=== PATIENT | male | born 1965 | race Caucasian/White ===

== ENCOUNTER 2019-07-04 08:07 | Outpatient (RCR) | payer OTHER, SELFPAY | END 2019-07-05 | LOC: GILAB 08:07 | PROVIDERS: Family Provider Internal Medicine; Visit Provider Internal Medicine | DX: R18.8 Other ascites (principal) | CPT/HCPCS: 36415 ×5; 49082 ×4; 76705 ×4; 80048 ×4; 85025 ×4; 96365 ×4; P9047 ×4 ==

== ENCOUNTER 2019-10-10 08:27 | Outpatient (RCR) | payer OTHER, SELFPAY | END 2019-11-04 00:01 | LOC: GILAB 08:27 | PROVIDERS: Family Provider Internal Medicine; Visit Provider Internal Medicine | DX: R18.8 Other ascites (principal) | CPT/HCPCS: 36415; 49082; 76705; 80048; 85025; P9047 ==

== ENCOUNTER → 2019-11-24 11:34 | Outpatient (BNVA) | payer BC, SELFPAY | PROVIDERS: Family Provider Internal Medicine; PCP Internal Medicine; Visit Provider Family Medicine | DX: Z94.4 Liver transplant status (principal) | CPT/HCPCS: 80048; 80076; 83735; 84100; 85025 ==

== ENCOUNTER 2019-11-26 14:37 | Outpatient (CLI) | payer BC, SELFPAY ==
--- NOTE | 2019-11-26 14:48 | US_ITS ---
WS: [id number] Abdominal ultrasound, limited. History: Evaluate for ascites. Comparison: None. All 4 quadrants are imaged by ultrasound to evaluate for ascites. Moderate amount of ascites througho ut all 4 quadrants. Paracentesis marked for Dr. Sotomayor. US/US abdomen limited [id number] IMPRESSION: Moderate amount of ascites.
[2019-11-26 15:08] VITALS: BMI 32.8
--- NOTE | 2019-11-26 15:29 | PC.NURSE ---
verbal order received from Dr. Sotomayor for a patient for albumin. Was having difficulty with the medication into the MAR. Pharmacy contacted and order given. Pharmacist informed that the medication would be put into the system for the patient.
[2019-11-26 17:08] VITALS: BP 135/85
[2019-11-26 17:44] LABS: Apprearance, Body Fluid CLEAR (CLEAR)
[2019-11-26 17:46] LABS: Body Fluid Polynuclear #Cells 0.018 10^3/uL; Body Fluid WBC 305 u/L; Monocytes # Body Fluid 0.287 10^3/uL; RBC, Body Fluid 2 10^3/uL (0-0)
[2019-11-26 18:03] LABS: Color, Body Fluid PALE YELLOW (PALE YELLOW)
[2019-11-26 21:03] LABS: Body Fluid Specific Gravity 1.005
[2019-11-26 21:04] LABS: Albumin Body Fluid 2.5 g/dL; Amylase Body Fluid 11 U/L; Cholesterol Body Fluid 88 mg/dL (0-200); Fluid Alkaline Phos. 29 IU/L; LDH Body Fluid 113 U/L; Total Protein Body Fluid 4 g/dL; Triglycerides Body Fluid 51 mg/dL (0-150)
[2019-11-26 21:05] LABS: Uric Acid Body Fluid 12 mg/dL
--- NOTE | 2019-11-27 11:26 | PM.ACPR ---
Acute Procedures Paracentesis: Time out performed: Yes Indication: Ascites Procedure: diagnostic paracentesis Location: RLQ Local anesthetic used: lidocaine 1% Amount of anesthesia used (ml): 5 Preparation: sterile prep and drape and 11 blade used to make trey in skin Amount of fluid obtained (ml): 5,600 Fluid: clear Size of needle used: 16 Post procedure exam: awake, alert, normal BP, normal HR and normal SpO2 Patient tolerated procedure: well Complications: none
== END 2019-11-26 14:38 | disposition home or self-care (01) ==
LOC: GILAB 14:40
PROVIDERS: Family Provider Internal Medicine; PCP Internal Medicine; Visit Provider Internal Medicine
DX: R18.8 Other ascites (principal)
CPT/HCPCS: 12345; 49082; 76705; 80500; 82042; 82150; 82465; 82945; 83615; 83986; 84075; 84157; 84315; 84478; 84560; 87070; 87075; 87205; 88112; 88305; 89050; 96365; P9047

== ENCOUNTER → 2019-12-01 08:03 | Outpatient (BNVA) | payer BC, SELFPAY | PROVIDERS: Family Provider Internal Medicine; PCP Internal Medicine; Visit Provider Internal Medicine | DX: Z94.4 Liver transplant status (principal) | CPT/HCPCS: 80048; 80076; 83735; 84100; 85025 ==

== ENCOUNTER 2019-12-05 11:07 | Outpatient (CLI) | payer BC, SELFPAY ==
[2019-12-05 11:01] VITALS: BP 132/97; PULSE 68; RESP 18; TEMP 36.4; O2SAT 98
[2019-12-05 11:02] VITALS: BP 163/97; PULSE 69; RESP 18; TEMP 36.4; O2SAT 98
--- NOTE | 2019-12-05 11:08 | US_ITS ---
WS: [id number] ULTRASOUND ABDOMEN LIMITED CLINICAL INFORMATION: ASCITES COMPARISON: None. FINDINGS: Ultrasound for paracentesis marking. Moderate ascites. IMPRESSION: Paracentesis marking
[2019-12-05 11:43] VITALS: BMI 32.6
--- NOTE | 2019-12-05 13:33 | PM.ACPR ---
Acute Procedures Paracentesis: Time out performed: Yes Indication: Ascites Procedure: therapeutic paracentesis Amount of anesthesia used (ml): 10 Bedside ultrasound used: yes, Ascites confirmed and location marked Preparation: sterile prep and drape and 11 blade used to make trey in skin Amount of fluid obtained (ml): 6,000 Fluid: clear Size of needle used: 16 Post procedure exam: awake, alert, normal BP, normal HR and normal SpO2 Patient tolerated procedure: well Complications: none
== END 2019-12-05 11:08 | disposition home or self-care (01) ==
PROVIDERS: Family Provider Internal Medicine; PCP Internal Medicine; Visit Provider Internal Medicine
DX: R18.8 Other ascites (principal)
CPT/HCPCS: 12345; 49082; 76705; P9047

== ENCOUNTER → 2019-12-08 08:59 | Outpatient (BNVA) | payer BC, SELFPAY | PROVIDERS: Family Provider Internal Medicine; PCP Internal Medicine; Visit Provider Internal Medicine | DX: Z94.4 Liver transplant status (principal) | CPT/HCPCS: 80048; 80076; 83735; 84100; 85025 ==

== ENCOUNTER → 2019-12-15 08:06 | Outpatient (BNVA) | payer BC, SELFPAY | PROVIDERS: Family Provider Internal Medicine; PCP Internal Medicine; Visit Provider Radiology Diagnostic Radiology | DX: Z94.4 Liver transplant status (principal) | CPT/HCPCS: 80048; 80076; 80197; 83735; 84100; 85007; 85027 ==

== ENCOUNTER 2019-12-19 10:08 | Outpatient (CLI) | payer BC, SELFPAY ==
--- NOTE | 2019-12-19 10:27 | US_ITS ---
WS: [id number] Limited abdomen ultrasound, 12/19/2019 Clinical Data: ASCITES Comparison: Limited abdomen ultrasound, 12/12/2019 Findings: All 4 quadrants of the abdomen were imaged to determine the quantity of ascites. The right lower quad rant was marked for Dr. Sotomayor to perform a paracentesis. There is a large amount of ascites through out the abdomen. US/US abdomen limited [id number] Impression: Large amount of ascites.
[2019-12-19 10:32] VITALS: BP 156/93; PULSE 72; RESP 18; TEMP 36.7; O2SAT 99; BMI 34.8
== END 2019-12-19 10:09 | disposition home or self-care (01) ==
LOC: GILAB 10:12
PROVIDERS: Family Provider Internal Medicine; PCP Internal Medicine; Visit Provider Internal Medicine
DX: R18.8 Other ascites (principal)
CPT/HCPCS: 49082; 49083; 76705; 96365; 99398; P9047

== ENCOUNTER 2019-12-29 10:42 | Outpatient (CLI) | payer BC, SELFPAY ==
[2019-12-29 10:45] VITALS: BP 131/99; PULSE 75; RESP 18; TEMP 36.6; O2SAT 97
--- NOTE | 2019-12-29 11:04 | US_ITS ---
WS: [id number] INDICATION: Ascites TECHNIQUE: Ultrasound abdomen FINDINGS: Ultrasound abdomen for paracentesis marking. Moderate ascites US/US abdomen lmt fluid [id number] IMPRESSION: Ultrasound abdomen for paracentesis marking
[2019-12-29 11:18] VITALS: BMI 35.7
[2019-12-29 11:49] LABS: Basophils % 0.2 %; Hematocrit 31.3 % (42.0-52.0); Hemoglobin 10.1 g/dL (11.7-16.6); Lymphocytes # 0.5 10^3/uL (0.8-4.8); Lymphocytes % 12.4 %; Mean Corpuscular HGB Conc 32.3 g/dL (30.0-36.0); Mean Corpuscular Hemoglobin 28.3 pg (28.0-34.0); Mean Corpuscular Volume 87.7 fL (80-94); Mean Platelet Volume 8.2 fL (7.4-10.4); Monocytes # 0.3 10^3/uL (0.2-0.9); Monocytes % 6.6 %; Neutrophils # 3.3 10^3/uL (1.8-7.7); Neutrophils % 80.6 %; Nucleated Red Blood Cells % 0 %; Platelet Count 60 10^3/cmm (130-400); Red Blood Count 3.57 10^6/uL (4.1-5.3); Red Cell Distribution Width 14.5 % (12.1-15.1); White Blood Count 4.1 10^3/uL (4.0-10.0)
[2019-12-29 12:06] LABS: Alanine Aminotransferase 7 U/L (0-41); Albumin Level 3.2 g/dL (3.5-5.2); Alkaline Phosphatase 43 IU/L (40-130); Anion Gap 13.7 (5-19); Aspartate Amino Transferase 12 U/L (0-40); Blood Urea Nitrogen 33 mg/dL (6-20); Calcium 9.5 mg/dL (8.5-10.5); Carbon Dioxide 25 mmol/L (22-29); Chloride 103 mmol/L (98-107); Globulin 2.7 g/dL (1.3-4.6); Glomerular Filtration Rate 45.3 mL/min (90-130); Glucose 121 mg/dL (65-115); Osmolality Calculated 283 mOsm/kg (285-295); Phosphorus 5.3 mg/dL (2.5-4.5); Potassium 4.7 mmol/L (3.5-5.1); Sodium 137 mmol/L (136-145); Total Bilirubin 0.5 mg/dL (0.15-1.2); Total Protein 5.9 g/dL (6.6-8.7)
[2019-12-29] MEDS: FUROsemide 10 mg/mL SDV 4mL 40 MG IVP (12:10)
== END 2019-12-29 10:43 | disposition home or self-care (01) ==
PROVIDERS: Transplant Surgery; Family Provider Internal Medicine; PCP Internal Medicine; Visit Provider Internal Medicine
DX: R18.8 Other ascites (principal)
CPT/HCPCS: 36415; 36430; 49082; 49083; 76705; 80048; 80076; 80197; 83735; 84100; 85025; 96374; 96375; 99398; J1940; P9047

== ENCOUNTER → 2020-01-05 10:50 | Outpatient (BNVA) | payer BC, SELFPAY | PROVIDERS: Family Provider Internal Medicine; PCP Internal Medicine; Visit Provider Internal Medicine | DX: Z94.4 Liver transplant status (principal); R60.1 Generalized edema | CPT/HCPCS: 80048; 80076; 81003; 82575; 83735; 83880; 84100; 84156; 85025 ==

== ENCOUNTER → 2020-01-12 10:22 | Outpatient (BNVA) | payer BC, SELFPAY | PROVIDERS: Family Provider Internal Medicine; PCP Internal Medicine; Visit Provider Internal Medicine | DX: Z94.4 Liver transplant status (principal) | CPT/HCPCS: 80048; 80076; 83735; 84100; 85025 ==

== ENCOUNTER 2020-01-13 10:27 | Outpatient (CLI) | payer BC, SELFPAY ==
--- NOTE | 2020-01-13 10:32 | USCV_ITS ---
Shahbaz Cleary Age: 54 Gender: M : 1965 Exam Date: 01/13/2020 10:44 Ordering Phys: NOT ON FILE, DOCTOR XX Technologist: Jayna Rojas Exam Location: [facility] – [place] Indication: SWELLING HISTORY: Upper extremity swelling. PROCEDURES: Venous duplex imaging was performed in only the right upper extremity. The following venous structures were evaluated: internal jugular vein, subclavian vein, axillary vein, and brachial veins. In addition, the basilic vein, cephalic vein, radial vein, and ulnar vein. Serial compression, augmentation maneuvers, and spectral Doppler flow evaluation were performed. FINDINGS: Normal 2-D, color Doppler and phasicity noted in ther right upper extremity venous system extending from the right internal jugular vein through the main forearm. No thrombosis or occlusion noted. Edema noted throughout right forearm. CONCLUSIONS No right upper extremity DVT. Dr. Lis Whalen DO (Electronically Signed) Final Date: 13 January 2020 12:34 S
== END 2020-01-13 10:28 | disposition home or self-care (01) ==
PROVIDERS: Family Provider Internal Medicine; PCP Internal Medicine; Visit Provider Transplant Surgery
DX: M79.89 Other specified soft tissue disorders (principal); Z94.4 Liver transplant status
CPT/HCPCS: 93971

== ENCOUNTER 2020-01-15 10:11 | Outpatient (CLI) | payer BC, SELFPAY ==
[2020-01-15 10:29] VITALS: BP 127/80; PULSE 70; RESP 18; TEMP 36.7; O2SAT 98; BMI 35.6
--- NOTE | 2020-01-15 10:38 | US_ITS ---
WS: [id number] Limited abdominal ultrasound for paracentesis, 01/15/2020 Clinical Data: paracentesis Comparison: Limited abdominal ultrasound, 12/29/2019. Findings: There is a large amount of ascites throughout the abdomen. The largest amount of fluid was in the rig ht lower quadrant. US/US abdomen limited [id number] Impression: Large amount of ascites throughout the entire abdomen.
--- NOTE | 2020-01-15 13:44 | PM.ACPR ---
Acute Procedures Paracentesis: Time out performed: Yes Indication: Ascites Procedure: therapeutic paracentesis Local anesthetic used: lidocaine 1% Amount of anesthesia used (ml): 10 Bedside ultrasound used: yes, Ascites confirmed and location marked Preparation: sterile prep and drape Amount of fluid obtained (ml): 8,500 Fluid: clear Size of needle used: 16 Post procedure exam: awake, alert, normal BP, normal HR and normal SpO2 Patient tolerated procedure: well Complications: none
== END 2020-01-15 10:12 | disposition home or self-care (01) ==
LOC: GILAB 10:13
PROVIDERS: Family Provider Internal Medicine; PCP Internal Medicine; Visit Provider Internal Medicine
DX: R18.8 Other ascites (principal)
CPT/HCPCS: 12345; 49082; 76705; P9047

== ENCOUNTER 2020-02-02 07:31 | Outpatient (CLI) | payer BC, SELFPAY ==
[2019-12-12 10:40] VITALS: BP 154/92; PULSE 71; RESP 18; TEMP 36.9; O2SAT 98
--- NOTE | 2019-12-12 10:41 | US_ITS ---
WS: [id number] Abdominal ultrasound, limited. History: Evaluate for ascites. Comparison: 12/05/2019. All 4 quadrants are imaged by ultrasound to evaluate for ascites. Large amount of ascites in all 4 qu adrants. LEFT upper quadrant is marked prior to paracentesis to be performed by Dr. Sotomayor. US/US abdomen limited [id number] IMPRESSION: Large amount of ascites.
[2019-12-12 10:50] VITALS: BMI 33.9
--- NOTE | 2019-12-12 13:26 | PM.ACPR ---
Acute Procedures Paracentesis: Time out performed: Yes Indication: Ascites Procedure: therapeutic paracentesis Location: RLQ Local anesthetic used: lidocaine 1% Bedside ultrasound used: yes, Ascites confirmed and location marked Preparation: sterile prep and drape and 11 blade used to make trey in skin Amount of fluid obtained (ml): 5,000 Fluid: clear Post procedure exam: awake, alert Complications: none
[2020-02-02 07:50] VITALS: BP 141/84; PULSE 66; RESP 18; TEMP 36.1; O2SAT 96; BMI 33.9
--- NOTE | 2020-02-02 07:59 | US_ITS ---
WS: [id number] Abdominal ultrasound, limited. History: Evaluate for ascites. Comparison: 01/15/2020 All 4 quadrants are imaged by ultrasound to evaluate for ascites. Large amount of ascites in all 4 qu adrants. RIGHT upper quadrant is marked prior to paracentesis. US/US abdomen limited [id number] IMPRESSION: Large amount of ascites.
[2020-02-02 08:26] LABS: Basophils % 0.3 %; Eosinophils % 0.3 %; Hemoglobin 10.8 g/dL (11.7-16.6); Lymphocytes # 0.6 10^3/uL (0.8-4.8); Lymphocytes % 17.6 %; Mean Corpuscular HGB Conc 31.8 g/dL (30.0-36.0); Mean Corpuscular Hemoglobin 27.4 pg (28.0-34.0); Mean Corpuscular Volume 86.3 fL (80-94); Mean Platelet Volume 9.9 fL (7.4-10.4); Monocytes # 0.4 10^3/uL (0.2-0.9); Monocytes % 12.8 %; Neutrophils # 2.3 10^3/uL (1.8-7.7); Neutrophils % 68.4 %; Nucleated Red Blood Cells % 0 %; Platelet Count 90 10^3/cmm (130-400); Red Blood Count 3.94 10^6/uL (4.1-5.3); Red Cell Distribution Width 13.4 % (12.1-15.1); White Blood Count 3.4 10^3/uL (4.0-10.0)
[2020-02-02 08:43] LABS: Alanine Aminotransferase 9 U/L (0-41); Albumin Level 3.9 g/dL (3.5-5.2); Alkaline Phosphatase 51 IU/L (40-130); Anion Gap 15.5 (5-19); Aspartate Amino Transferase 18 U/L (0-40); Blood Urea Nitrogen 27 mg/dL (6-20); Calcium 9.6 mg/dL (8.5-10.5); Carbon Dioxide 26 mmol/L (22-29); Chloride 99 mmol/L (98-107); Globulin 2.4 g/dL (1.3-4.6); Glomerular Filtration Rate 69.8 mL/min (90-130); Glucose 129 mg/dL (65-115); Osmolality Calculated 281 mOsm/kg (285-295); Potassium 4.5 mmol/L (3.5-5.1); Sodium 136 mmol/L (136-145); Total Bilirubin 0.5 mg/dL (0.15-1.2); Total Protein 6.3 g/dL (6.6-8.7)
--- NOTE | 2020-02-02 09:34 | P.PCN_ITS ---
Acute Procedures Paracentesis: Time out performed: Yes Indication: Ascites Procedure: therapeutic paracentesis Location: RLQ Local anesthetic used: lidocaine 1% Bedside ultrasound used: yes, Ascites confirmed and location marked Preparation: sterile prep and drape and 11 blade used to make trey in skin Amount of fluid obtained (ml): 5,500 Fluid: clear Post procedure exam: awake, alert, normal BP, normal HR and normal SpO2 Patient tolerated procedu re: well Complications: none
== END 2020-02-02 07:32 | disposition home or self-care (01) ==
PROVIDERS: Family Provider Internal Medicine; PCP Internal Medicine; Visit Provider Internal Medicine
DX: R18.8 Other ascites (principal)
CPT/HCPCS: 12345; 36415; 49082; 49083; 76705; 80048; 80076; 80197; 85025; 96365; J1940; P9047

== ENCOUNTER → 2020-02-09 08:46 | Outpatient (BNVA) | payer BC, SELFPAY | PROVIDERS: Family Provider Internal Medicine; PCP Internal Medicine; Visit Provider Internal Medicine | DX: Z94.4 Liver transplant status (principal) | CPT/HCPCS: 80048; 80076; 80197; 83735; 84100; 85025 ==

== ENCOUNTER 2020-02-19 12:44 | Outpatient (CLI) | payer BC, SELFPAY ==
--- NOTE | 2020-02-19 | USCV_ITS ---
Shahbaz Cleary Age: 54 Gender: M : 1965 Exam Date: 02/19/2020 13:28 Ordering Phys: Remberto Sotomayor MD Technologist: Alvarez Deleon Exam Location: [facility] – [place] Indication: RT LEG PAIN AND SWELLING HISTORY: Lower extremity edema. PROCEDURES: Venous duplex imaging was performed in only the right lower extremity. The following venous structures were evaluated: common femoral vein, profunda vein, proximal portion of the greater saphenous vein, superficial femoral vein, and the popliteal vein. In addition, the posterior tibial and peroneal trunk were evaluated. FINDINGS: Normal 2-D Doppler and augmentation and compressibility throughout the lower extremity venous structures. Additional imaging through the proximal calf veins also reveals no thrombus. Limited evaluation of the greater saphenous vein is patent with no thrombus. There is subcutaneous right lower extremity edema noted. CONCLUSIONS No DVT right lower extremity. Dr. Lis Whalen DO (Electronically Signed) Final Date: 19 February 2020 16:10 S
== END 2020-02-19 12:45 | disposition home or self-care (01) ==
LOC: RAD 12:45
PROVIDERS: Family Provider Internal Medicine; PCP Internal Medicine; Visit Provider Internal Medicine
DX: M79.604 Pain in right leg (principal); M79.89 Other specified soft tissue disorders
CPT/HCPCS: 93971

== ENCOUNTER → 2020-02-25 13:12 | Outpatient (BNVA) | payer BC, SELFPAY | PROVIDERS: Family Provider Internal Medicine; PCP Internal Medicine; Visit Provider Internal Medicine | DX: Z94.4 Liver transplant status (principal) | CPT/HCPCS: 80048; 80076; 80197; 83735; 84100; 85025 ==

== ENCOUNTER → 2020-03-09 11:58 | Outpatient (BNVA) | payer BC, SELFPAY | PROVIDERS: Family Provider Internal Medicine; PCP Internal Medicine; Visit Provider Internal Medicine | DX: Z94.4 Liver transplant status (principal) | CPT/HCPCS: 80048; 80076; 80197; 83735; 84100; 85025 ==

== ENCOUNTER → 2020-03-22 12:24 | Outpatient (BNVA) | payer BC, SELFPAY | PROVIDERS: Family Provider Internal Medicine; PCP Internal Medicine; Visit Provider Internal Medicine | DX: Z94.4 Liver transplant status (principal) | CPT/HCPCS: 80048; 80076; 80197; 83735; 84100; 85025; 87496 ==

== ENCOUNTER → 2020-04-05 13:16 | Outpatient (BNVA) | payer BC, SELFPAY | PROVIDERS: Family Provider Internal Medicine; PCP Internal Medicine; Visit Provider Internal Medicine | DX: Z94.4 Liver transplant status (principal) | CPT/HCPCS: 80048; 80076; 80197; 83735; 84100; 85025 ==

== ENCOUNTER → 2020-04-19 08:15 | Outpatient (BNVA) | payer BC, SELFPAY | PROVIDERS: Family Provider Internal Medicine; PCP Internal Medicine; Visit Provider Internal Medicine | DX: Z94.4 Liver transplant status (principal) | CPT/HCPCS: 80053; 80197; 85025 ==

== ENCOUNTER → 2020-04-22 09:17 | Outpatient (BNVA) | payer BC, SELFPAY | PROVIDERS: Family Provider Internal Medicine; PCP Internal Medicine; Visit Provider Internal Medicine | DX: Z94.4 Liver transplant status (principal) | CPT/HCPCS: 80197 ==

== ENCOUNTER → 2020-05-06 11:36 | Outpatient (BNVA) | payer BC, SELFPAY | PROVIDERS: Family Provider Internal Medicine; PCP Internal Medicine; Visit Provider Internal Medicine | DX: Z94.4 Liver transplant status (principal); L03.119 Cellulitis of unspecified part of limb; L02.93 Carbuncle, unspecified | CPT/HCPCS: 80053; 85025 ==

== ENCOUNTER → 2020-05-10 09:32 | Outpatient (BNVA) | payer BC, SELFPAY | PROVIDERS: Family Provider Internal Medicine; PCP Internal Medicine; Visit Provider Internal Medicine | DX: Z94.4 Liver transplant status (principal) | CPT/HCPCS: 80197 ==

== ENCOUNTER → 2020-05-31 08:57 | Outpatient (BNVA) | payer BC, SELFPAY | PROVIDERS: Referring Provider Dermatology; Visit Provider Dermatology | DX: B35.3 Tinea pedis (principal); L57.0 Actinic keratosis; B35.1 Tinea unguium; D22.9 Melanocytic nevi, unspecified; Z94.9 Transplanted organ and tissue status, unspecified | CPT/HCPCS: 99203 ==

== ENCOUNTER → 2020-06-07 11:45 | Outpatient (BNVA) | payer BC, SELFPAY | PROVIDERS: Family Provider Internal Medicine; PCP Internal Medicine; Visit Provider Internal Medicine | DX: Z48.23 Encounter for aftercare following liver transplant (principal) | CPT/HCPCS: 80048; 80076; 80197; 83735; 84100; 85025 ==

== ENCOUNTER → 2020-06-16 12:17 | Outpatient (BNVA) | payer BC, SELFPAY | PROVIDERS: Family Provider Internal Medicine; PCP Internal Medicine; Visit Provider Internal Medicine | DX: Z94.4 Liver transplant status (principal) | CPT/HCPCS: 80048; 80076; 80197; 83735; 84100; 85025 ==

== ENCOUNTER → 2020-06-18 08:00 | Outpatient (BNVA) | payer BC, SELFPAY | PROVIDERS: Family Provider Internal Medicine; PCP Internal Medicine; Visit Provider Internal Medicine Nephrology | DX: D89.9 Disorder involving the immune mechanism, unspecified (principal) | CPT/HCPCS: 87177; 87205; 87209; 87329; 87493 ==

== ENCOUNTER → 2020-06-21 16:00 | Outpatient (BNVA) | payer BC, SELFPAY | PROVIDERS: Family Provider Internal Medicine; PCP Internal Medicine; Visit Provider Internal Medicine Nephrology | DX: D89.9 Disorder involving the immune mechanism, unspecified (principal); R19.7 Diarrhea, unspecified; Z94.4 Liver transplant status | CPT/HCPCS: 87493; 87506 ==

== ENCOUNTER → 2020-07-15 09:57 | Outpatient (BNVA) | payer BC, SELFPAY | PROVIDERS: Family Provider Internal Medicine; PCP Internal Medicine; Visit Provider Internal Medicine | DX: Z94.4 Liver transplant status (principal) | CPT/HCPCS: 80048; 80076; 80197; 83735; 84100; 85025 ==

== ENCOUNTER → 2020-07-20 08:13 | Outpatient (BNVA) | payer BC, SELFPAY | PROVIDERS: Family Provider Internal Medicine; PCP Internal Medicine; Referring Provider Dermatology; Visit Provider Dermatology | DX: B35.3 Tinea pedis (principal); D22.9 Melanocytic nevi, unspecified; L57.0 Actinic keratosis; Z94.4 Liver transplant status | CPT/HCPCS: 17000; 17003; 99213 ==

== ENCOUNTER → 2020-08-09 08:53 | Outpatient (BNVA) | payer BC, SELFPAY | PROVIDERS: Family Provider Internal Medicine; PCP Internal Medicine; Visit Provider Internal Medicine | DX: Z94.4 Liver transplant status (principal) | CPT/HCPCS: 80048; 80076; 80197; 83735; 84100; 85025 ==

== ENCOUNTER → 2020-08-23 12:14 | Outpatient (BNVA) | payer BC, SELFPAY | PROVIDERS: Family Provider Internal Medicine; PCP Internal Medicine; Visit Provider Internal Medicine | DX: Z94.4 Liver transplant status (principal) | CPT/HCPCS: 80048; 80076; 80197; 83735; 84100; 85025 ==

== ENCOUNTER → 2020-09-13 08:30 | Outpatient (BNVA) | payer BC, SELFPAY | PROVIDERS: Family Provider Internal Medicine; PCP Internal Medicine; Visit Provider Internal Medicine | DX: Z94.4 Liver transplant status (principal) | CPT/HCPCS: 80048; 80076; 80197; 83735; 85025; 87496 ==

== ENCOUNTER → 2020-10-18 09:43 | Outpatient (BNVA) | payer BC, SELFPAY | PROVIDERS: Family Provider Internal Medicine; PCP Internal Medicine; Visit Provider Internal Medicine | DX: Z94.4 Liver transplant status (principal) | CPT/HCPCS: 80048; 80076; 80197; 83735; 84100; 85025; 86704; 86706; 87340 ==

== ENCOUNTER → 2020-11-11 14:30 | Outpatient (BNVA) | payer BC, SELFPAY | PROVIDERS: Family Provider Internal Medicine; PCP Internal Medicine; Visit Provider Dermatology | DX: L02.221 Furuncle of abdominal wall (principal); L02.91 Cutaneous abscess, unspecified | CPT/HCPCS: 87070; 87077; 87186 ==

== ENCOUNTER → 2020-11-15 08:59 | Outpatient (BNVA) | payer BC, SELFPAY | PROVIDERS: Family Provider Internal Medicine; PCP Internal Medicine; Visit Provider Internal Medicine | DX: K75.81 Nonalcoholic steatohepatitis (NASH) (principal); Z94.4 Liver transplant status | CPT/HCPCS: 80048; 80061; 80076; 80197; 83735; 84100; 85025 ==

== ENCOUNTER → 2020-12-06 10:41 | Outpatient (BNVA) | payer BC, SELFPAY | PROVIDERS: Family Provider Internal Medicine; PCP Internal Medicine; Visit Provider Internal Medicine Gastroenterology | DX: Z94.4 Liver transplant status (principal); E78.5 Hyperlipidemia, unspecified; K75.81 Nonalcoholic steatohepatitis (NASH); F32.9 Major depressive disorder, single episode, unspecified | CPT/HCPCS: 80048; 80076; 80197; 83735; 84100; 85025 ==

== ENCOUNTER → 2021-01-04 09:21 | Outpatient (BNVA) | payer BC, SELFPAY | PROVIDERS: Family Provider Internal Medicine; PCP Internal Medicine; Visit Provider Internal Medicine | DX: Z94.4 Liver transplant status (principal); E78.5 Hyperlipidemia, unspecified | CPT/HCPCS: 80048; 80076; 80197; 83735; 84100; 85025 ==

== ENCOUNTER → 2021-03-07 12:06 | Outpatient (BNVA) | payer BC, SELFPAY | PROVIDERS: Family Provider Internal Medicine; PCP Internal Medicine; Visit Provider Internal Medicine | DX: Z94.4 Liver transplant status (principal); E78.5 Hyperlipidemia, unspecified; Z79.899 Other long term (current) drug therapy | CPT/HCPCS: 80048; 80076; 80197; 83735; 84100; 85025 ==

== ENCOUNTER → 2021-05-11 09:43 | Outpatient (BNVA) | payer BC, SELFPAY | PROVIDERS: Family Provider Internal Medicine; PCP Internal Medicine; Visit Provider Internal Medicine | DX: Z94.4 Liver transplant status (principal); E78.5 Hyperlipidemia, unspecified; Z79.899 Other long term (current) drug therapy | CPT/HCPCS: 80048; 80076; 80197; 83735; 84100; 85025 ==

== ENCOUNTER → 2021-07-12 09:10 | Outpatient (BNVA) | payer BC, SELFPAY | PROVIDERS: Family Provider Internal Medicine; PCP Internal Medicine; Visit Provider Internal Medicine | DX: E78.5 Hyperlipidemia, unspecified (principal); K75.81 Nonalcoholic steatohepatitis (NASH); Z94.4 Liver transplant status | CPT/HCPCS: 80048; 80076; 80197; 83735; 84100; 85025 ==

== ENCOUNTER → 2021-09-05 13:23 | Outpatient (BNVA) | payer BC, SELFPAY | PROVIDERS: Family Provider Internal Medicine; PCP Internal Medicine; Visit Provider Internal Medicine Gastroenterology | DX: Z94.4 Liver transplant status (principal) | CPT/HCPCS: 80048; 80076; 80197; 83735; 85025 ==

== ENCOUNTER → 2021-11-07 10:21 | Outpatient (BNVA) | payer OTHER, SELFPAY | PROVIDERS: Family Provider Internal Medicine; PCP Internal Medicine; Visit Provider Internal Medicine Gastroenterology | DX: E78.5 Hyperlipidemia, unspecified (principal); Z94.4 Liver transplant status; Z51.81 Encounter for therapeutic drug level monitoring | CPT/HCPCS: 80048; 80061; 80076; 80197; 82306; 83735; 84100; 85025 ==

== ENCOUNTER → 2022-01-10 10:51 | Outpatient (BNVA) | payer OTHER, SELFPAY | PROVIDERS: Family Provider Internal Medicine; PCP Internal Medicine; Visit Provider Internal Medicine | DX: Z94.4 Liver transplant status (principal) | CPT/HCPCS: 80048; 80076; 80197; 83735; 84100; 85025 ==

== ENCOUNTER 2022-02-20 16:19 | Outpatient (CLI) | payer OTHER, SELFPAY ==
--- NOTE | 2022-02-20 16:52 | XR_ITS ---
WS: [id number] Exam: [place] [id number] Date/Time of Exam: 02/20/2022 4:54 PM Reason For Exam: Bilateral worsening knee pain. No fracture or dislocation. The medial and lateral joint compartments are relatively well maintained. Mild varus of both knees. Normal bilateral soft tissues. XR/[place] [id number] IMPRESSION: 1. Mild varus deformity of both knees. 2. No other significant finding.
== END 2022-02-20 16:20 | disposition home or self-care (01) ==
PROVIDERS: PCP Internal Medicine; Visit Provider Internal Medicine
DX: M21.162 Varus deformity, not elsewhere classified, left knee (principal); M21.161 Varus deformity, not elsewhere classified, right knee
CPT/HCPCS: 73565

== ENCOUNTER → 2022-04-04 13:44 | Outpatient (BNVA) | payer OTHER, SELFPAY | PROVIDERS: PCP Internal Medicine; Referring Provider Internal Medicine; Visit Provider Orthopaedic Surgery | DX: M25.561 Pain in right knee (principal); M25.562 Pain in left knee | CPT/HCPCS: 73560; 73565 ==

== ENCOUNTER → 2022-04-05 09:11 | Outpatient (BNVA) | payer OTHER, SELFPAY | PROVIDERS: PCP Internal Medicine; Visit Provider Internal Medicine Gastroenterology | DX: Z94.4 Liver transplant status (principal) | CPT/HCPCS: 80048; 80197; 82977; 83615; 83735; 84100; 84450; 84460; 85025 ==

== ENCOUNTER 2022-05-10 13:32 | Outpatient (CLI) | payer OTHER, SELFPAY ==
--- NOTE | 2022-05-10 14:30 | MR_ITS ---
WS: [id number] MRI LEFT KNEE HISTORY: Pain and weakness. COMPARISON: 08/02/2006 Anterior cruciate ligament: Intact. Posterior cruciate ligament: Intact. Medial collateral ligament: Small amount of fluid adjacent to the MCL but no tear. Posterior lateral corner structures: Intact. Medial menisci: Intact. Normal signal, size and shape. Lateral meniscus: Intact. Normal signal, size and shape. Extensor mechanism: Distal quadriceps tendon is normal. Mild increased signal in the proximal patella r tendon. Fluid and soft tissue: Small suprapatellar joint effusion. There is also a small amount of edema surr ounding the knee joint. Mild soft tissue edema. No Colvin's cyst. Osseous and articular structures: Patellofemoral compartment: Moderate chondromalacia of the patella. More significant thinning and los s of cartilage along the medial facet. Small full-thickness defects but no underlying marrow edema. P atellar retinaculum is intact. Medial compartment: Very minimal narrowing medial compartment. Full-thickness cartilage defect involv ing weightbearing surface of the femoral condyle towards the intercondylar notch. Defect measuring 7 mm. There is additional thinning and fissuring of the cartilage. Lateral compartment: Very minimal narrowing of the lateral compartment. Small subchondral cyst involv ing the posterior lateral tibial plateau. There is very mild thinning and fissuring of the cartilage. Small subcortical cyst in the lateral femoral condyle. MR/MR knee LT wo con* [id number] IMPRESSION: 1. Small joint effusion and subcutaneous edema surrounding the knee. 2. Moderate chondromalacia of the patella. More significant loss of cartilage along the medial facet. 3. Mild narrowing of the medial compartment with a 7 mm full-thickness cartila ge defect along the femoral condyle weightbearing surface. Additional thinning and fissuring of the cartilage. 4. Mild diffuse thinning and fissuring of the cartilage in the lateral compart ment. 5. No meniscal tear.
== END 2022-05-10 13:33 | disposition home or self-care (01) ==
PROVIDERS: PCP Internal Medicine; Visit Provider Orthopaedic Surgery
DX: M25.562 Pain in left knee (principal); M25.561 Pain in right knee; M25.462 Effusion, left knee; M22.42 Chondromalacia patellae, left knee; E78.5 Hyperlipidemia, unspecified; M10.9 Gout, unspecified; D84.9 Immunodeficiency, unspecified; E55.9 Vitamin D deficiency, unspecified; Z94.4 Liver transplant status; Z12.5 Encounter for screening for malignant neoplasm of prostate
CPT/HCPCS: 73721; 80048; 80061; 80076; 80197; 82306; 83735; 84550; 85025; 86706; G0103

== ENCOUNTER → 2022-05-22 09:01 | Outpatient (BNVA) | payer OTHER, SELFPAY | PROVIDERS: PCP Internal Medicine; Visit Provider Nurse Practitioner | DX: G62.9 Polyneuropathy, unspecified (principal); G72.9 Myopathy, unspecified | CPT/HCPCS: 82550; 82607; 82746; 83921; 84443; 85651; 86140; 86334 ==

== ENCOUNTER → 2022-07-11 08:10 | Outpatient (BNVA) | payer OTHER, SELFPAY | PROVIDERS: PCP Internal Medicine; Visit Provider Internal Medicine | DX: Z94.4 Liver transplant status (principal) | CPT/HCPCS: 80048; 80076; 80197; 83735; 84100; 85025 ==

== ENCOUNTER → 2022-07-13 12:37 | Outpatient (BNVA) | payer OTHER, SELFPAY | PROVIDERS: PCP Internal Medicine; Referring Provider Nurse Practitioner; Visit Provider Specialist | DX: G56.03 Carpal tunnel syndrome, bilateral upper limbs (principal); G62.9 Polyneuropathy, unspecified; M25.561 Pain in right knee; M25.562 Pain in left knee; G72.9 Myopathy, unspecified; Z94.4 Liver transplant status; K75.81 Nonalcoholic steatohepatitis (NASH) | CPT/HCPCS: 36415; 82085; 82550; 83516; 83519 ==

== ENCOUNTER 2022-08-03 05:33 | Day surgery (SDC) | payer OTHER, SELFPAY ==
[2022-08-03 06:03] VITALS: BP 137/84; PULSE 69; RESP 18; TEMP 36.2; O2SAT 98
[2022-08-03 06:51] LABS: Blood Urea Nitrogen 13 mg/dL (6-20); Calcium 9.8 mg/dL (8.5-10.5); Carbon Dioxide 26 mmol/L (22-29); Chloride 98 mmol/L (98-107); Glomerular Filtration Rate 139.4 mL/min (90-130); Glucose 168 mg/dL (65-115); Osmolality Calculated 290 mOsm/kg (285-295); Sodium 138 mmol/L (136-145)
[2022-08-03 06:52] LABS: Anion Gap 17.8 (5-19); Potassium 3.8 mmol/L (3.5-5.1)
--- NOTE | 2022-08-03 06:58 | W.PM.OPSUD ---
Surgery/Procedure H&P Update DATE OF PROCEDURE: August 03, 2022 DATE H&P PERFORMED: 07/21/22 PREOP DIAGNOSIS: Myopathy PLANNED PROCEDURE: Operation Date: 08/03/22 07:00 Proposed Procedures p muscle biopsy of right deltoid ,G72.9(Right) - Tereso Lopes DO
[2022-08-03] MEDS: sodium chloride 0.9% 1,000 ML 30 ML IV (07:00)
[2022-08-03] MEDS: ceFAZolin 2,000 MG in sodium chloride 0.9% (plus) 50 ML 100 MG IV (07:00)
--- NOTE | 2022-08-03 07:02 | ANES.PREANE2 ---
Pre-Anesthetic Assessment Height/Weight: Height 1.73 m Weight 101.605 kg Temp Pulse Resp BP Pulse Ox O2 Del Method 97.2 F L 69 18 137/84 98 08/03/22 06:03 08/03/22 06:03 08/03/22 06:03 08/03/22 06:03 08/03/22 06:03 08/03/22 06:03 Preop Diagnosis: Myopathy Operation Date: 08/03/22 07:00 Proposed Procedures p muscle biopsy of right deltoid [id number],G72.9(Right) - Tereso Lopes DO Familial anesthetic complications: None Was Beta Margarito taken within 24 hours: Yes Was Clonidine taken within 24 hours: N/A Last intake: Intake Last Liquid Date 08/02/22 Last Liquid Time 19: Last Solid Date 08/02/22 Last Solid Time :30 Social No alcohol and No tobacco Exam alert, oriented x 3, clear to auscultation bilaterally and regular rate & rhythm Airway Mallampati: Class III Dentition: full CV/HEM Hypertension Hepatic Liver TXP for HERNANDEZ GI Gastroesophageal Reflux Disease Musc/jakub muscle weakness/myopathy Anesthetic Plan ASA status: 3 Anesthesia: MAC Risk of > 500 ml blood loss (7ml/kg in children): No Medications/Allergies Home Medications Medication Instructions Recorded Confirmed Last Taken Type ondansetron HCl 4 mg tablet 4 mg PO PRN 11/26/19 08/03/22 08/02/22 History folic acid 1 mg tablet 1 mg PO DAILY 05/31/20 08/03/22 08/02/22 History magnesium 200 mg tablet 1,200 mg PO DAILY 05/31/20 08/03/22 08/02/22 History omeprazole 40 mg capsule,delayed 40 mg PO DAILY 05/31/20 08/03/22 08/02/22 History release aspirin 81 mg tablet,delayed 81 mg PO DAILY #90 tabs 10/18/20 08/03/22 08/01/22 Rx release (Adult Aspirin Regimen) cpap #1 ea 07/25/21 07/21/22 Unknown Rx black augustine 1,000 mg as directed BID #60 caps 08/09/21 08/03/22 08/02/22 Rx tacrolimus 1 mg tablet,extended 1 mg PO QAM 08/09/21 08/03/22 08/03/22 History release 24 hr (Envarsus XR) furosemide 20 mg tablet 20 mg PO BID #180 tabs 11/16/21 08/03/22 08/02/22 Rx nifedipine 90 mg tablet,extended 90 mg PO DAILY #90 tabs 11/16/21 08/03/22 08/02/22 Rx release thiamine HCl (vitamin B1) 100 mg 100 mg PO DAILY #90 tabs 12/30/21 08/03/22 08/02/22 Rx tablet duloxetine 30 mg capsule,delayed 90 mg PO DAILY #90 caps 03/27/22 08/03/22 08/02/22 Rx release tacrolimus 0.75 mg tablet,extended 0.75 mg PO DAILY 05/10/22 08/03/22 08/03/22 History release 24 hr (Envarsus XR) oxycodone 10 mg tablet 10 mg PO TID PRN pain 7 days #21 07/18/22 08/03/22 08/02/22 Rx tabs colchicine 0.6 mg tablet (Colcrys) 0.6 mg PO DAILY #20 tabs 07/19/22 08/03/22 Unknown Rx carvedilol 25 mg tablet (Coreg) 25 mg PO BID 08/02/22 08/03/22 08/03/22 04:30 History doxazosin 4 mg tablet 4 mg PO DAILY 08/02/22 08/03/22 08/02/22 History Allergies Allergy/AdvReac Type Severity Reaction Status Date / Time No Known Allergies Allergy Verified 07/21/22 09:39 [facility] [place] Anesthesia Medical History Hernia History of nonmelanoma skin cancer Immunosuppression 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 Father Diabetes Mother Diabetes Social History Smoking and tobacco status: current every day smoker (chew tobacco) Alcohol intake: former History of recent travel: No Current gender identity: Male Data Anesthesia : 08/03/22 06:14 BMP 08/03/22 06:14 Sodium 138 Potassium 3.8 Chloride 98 Carbon Dioxide 26 BUN 13 Creatinine 0.6 L Glucose 168 H Calcium 9.8 Cardiac Studies: No Data to Display
--- NOTE | 2022-08-03 07:24 | SUR.OPER ---
called pathology to confirm specimen requirements prior to starting case.
--- NOTE | 2022-08-03 07:44 | PM.OP ---
Operative Report Date of procedure: August 03, 2022 Pre-op diagnosis: Preop Diagnosis Myopathy Post-op diagnosis: same Procedure done: Right deltoid muscle biopsy Specimens removed/disposition: Right deltoid muscle Surgeon: Dr. Tereso Lopes DO Anesthesia: MAC Estimated blood loss (mL): 5 Complications: None apparent Brief History: This is a very pleasant for myopathy. Muscle biopsy was indicated. The risks and benefits of the procedure were explained and documented. Procedure: Patient was well in the OR. The right deltoid was inspected prepped and draped in the usual sterile fashion. Adequate anesthesia was achieved by the department of anesthesia. A timeout was performed. All present were in agreement. Lidocaine with epinephrine was injected over the right deltoid muscle. A 3 cm incision was made parallel to the muscle. Bovie cautery was used to dissect down through the subcutaneous tissue. The fascia was then incised with scalpel. Hemostats were used to grab the fascia on both sides. The fascial incision was then extended with iris scissors. The muscle was identified and a 3-0 Vicryl was placed through the area of interest. Metzenbaum scissors and hemostats were used to bluntly dissect out a muscle bundle about 1.5 cm in length. Iris scissors were then used to transect the muscle proximally and distally. Specimen was passed off and placed in a container with moist Telfa. Hemostasis was noted. The fascia was then closed with 3-0 Vicryl in an interrupted fashion. The dermis was closed with 3-0 Vicryl in an interrupted fashion. Skin was closed with 4-0 Monocryl in a subcuticular running fashion. Skin was washed and dried. Dermabond was applied. Patient tolerated the procedure well.
[2022-08-03 07:45] VITALS: BP 110/66; PULSE 69; RESP 16; TEMP 36.3; O2SAT 93
[2022-08-03 07:50] VITALS: BP 115/70; PULSE 68; RESP 16; O2SAT 94
[2022-08-03 08:03] VITALS: BP 117/64; PULSE 73; RESP 18; O2SAT 93
[2022-08-03 08:25] VITALS: BP 124/81; PULSE 68; RESP 18; O2SAT 91
== END 2022-08-03 08:30 | disposition home or self-care (01) ==
PROVIDERS: PCP Internal Medicine; Visit Provider Surgery
PROC: (CPT 20200; principal; 2022-08-03 07:00)
DX: G72.9 Myopathy, unspecified (principal); I10 Essential (primary) hypertension; K21.9 Gastro-esophageal reflux disease without esophagitis; F17.220 Nicotine dependence, chewing tobacco, uncomplicated
CPT/HCPCS: 20200; 36415; 80048; 88305; J2704; J3010; J7030

== ENCOUNTER → 2022-08-28 09:18 | Outpatient (BNVA) | payer OTHER, SELFPAY | PROVIDERS: PCP Internal Medicine; Visit Provider Specialist | DX: G72.9 Myopathy, unspecified (principal); G56.03 Carpal tunnel syndrome, bilateral upper limbs | CPT/HCPCS: 73110 ==

== ENCOUNTER 2022-08-28 11:23 | Outpatient (CLI) | payer OTHER, SELFPAY | END 2022-08-28 11:24 | disposition home or self-care (01) | LOC: SPT 11:24 | PROVIDERS: PCP Internal Medicine; Visit Provider Specialist | DX: Z46.89 Encounter for fitting and adjustment of other specified devices (principal); G56.03 Carpal tunnel syndrome, bilateral upper limbs | CPT/HCPCS: 97760; L3908 ==

== ENCOUNTER 2022-09-08 06:00 | Outpatient (RCR) | payer OTHER, SELFPAY | END 2022-10-04 23:59 | disposition home or self-care (01) | LOC: TPT 06:00 | PROVIDERS: PCP Internal Medicine; Visit Provider Specialist | DX: R53.1 Weakness (principal) | CPT/HCPCS: 97110; 97162 ==

== ENCOUNTER 2022-10-04 06:00 | Outpatient (RCR) | payer OTHER, SELFPAY | END 2022-10-04 23:55 | disposition home or self-care (01) | LOC: TPT 06:00 | PROVIDERS: PCP Internal Medicine; Visit Provider Specialist | DX: R53.1 Weakness (principal); G56.03 Carpal tunnel syndrome, bilateral upper limbs | CPT/HCPCS: 36415; 85651; 86140; 86160; 86162; 86235; 86255; 86376; 97110; 97161 ==

== ENCOUNTER 2022-10-05 06:00 | Outpatient (RCR) | payer OTHER, SELFPAY | END 2022-11-04 23:59 | disposition home or self-care (01) | LOC: TPT 06:00 | PROVIDERS: PCP Internal Medicine; Visit Provider Specialist | DX: R53.1 Weakness (principal); G56.03 Carpal tunnel syndrome, bilateral upper limbs | CPT/HCPCS: 97110; 97164 ==

== ENCOUNTER 2022-10-05 06:00 | Outpatient (RCR) | payer OTHER, SELFPAY | END 2022-11-04 23:59 | disposition home or self-care (01) | LOC: TPT 06:00 | PROVIDERS: PCP Internal Medicine; Visit Provider Specialist | DX: R53.1 Weakness (principal); G56.03 Carpal tunnel syndrome, bilateral upper limbs | CPT/HCPCS: 97110 ==

== ENCOUNTER → 2022-10-06 12:11 | Outpatient (BNVA) | payer OTHER, SELFPAY | PROVIDERS: PCP Internal Medicine; Visit Provider Internal Medicine Gastroenterology | DX: Z94.4 Liver transplant status (principal) | CPT/HCPCS: 80048; 80076; 80197; 83735; 85025 ==

== ENCOUNTER 2022-12-06 06:00 | Outpatient (RCR) | payer OTHER, SELFPAY | END 2023-01-02 23:59 | disposition home or self-care (01) | LOC: TPT 06:00 | PROVIDERS: PCP Internal Medicine; Visit Provider Specialist | DX: R53.1 Weakness (principal) | CPT/HCPCS: 97110 ==

== ENCOUNTER 2022-12-06 06:00 | Outpatient (RCR) | payer OTHER, SELFPAY | END 2023-01-02 23:59 | disposition home or self-care (01) | LOC: TPT 06:00 | PROVIDERS: PCP Internal Medicine; Visit Provider Specialist | DX: R53.1 Weakness (principal) | CPT/HCPCS: 97110 ==

== ENCOUNTER 2023-01-03 06:00 | Outpatient (RCR) | payer OTHER, SELFPAY | END 2023-02-02 23:59 | disposition home or self-care (01) | LOC: TPT 06:00 | PROVIDERS: PCP Internal Medicine; Visit Provider Specialist | DX: M62.81 Muscle weakness (generalized) (principal); R29.6 Repeated falls | CPT/HCPCS: 97110 ==

== ENCOUNTER → 2023-01-03 08:18 | Outpatient (BNVA) | payer OTHER, SELFPAY | PROVIDERS: PCP Internal Medicine; Visit Provider Internal Medicine Gastroenterology | DX: Z94.4 Liver transplant status (principal); Z79.899 Other long term (current) drug therapy | CPT/HCPCS: 80048; 80076; 80197; 83735; 85025 ==

== ENCOUNTER 2023-02-03 06:00 | Outpatient (RCR) | payer OTHER, SELFPAY | END 2023-03-04 23:59 | disposition home or self-care (01) | LOC: TPT 06:00 | PROVIDERS: PCP Internal Medicine; Visit Provider Specialist | DX: M62.81 Muscle weakness (generalized) (principal); R29.6 Repeated falls | CPT/HCPCS: 97110 ==

== ENCOUNTER 2023-02-17 14:17 | Emergency (ER) | payer OTHER, SELFPAY ==
[2023-02-17 14:22] VITALS: BP 149/84; PULSE 73; TEMP 36.6; O2SAT 97; BMI 32.5
--- NOTE | 2023-02-17 14:38 | CTR_ITS ---
PROCEDURE INFORMATION: Exam: CT Chest Without Contrast; Diagnostic Exam date and time: 02/17/2023 2:59 PM Age: 57 years old Clinical indication: Injury or trauma; Fall; Blunt trauma (contusions or hematomas); Prior surgery; Surgery type: Liver transplant; Additional info: Fall left lateral chest wall pain TECHNIQUE: Imaging protocol: Diagnostic computed tomography of the chest without contrast. Radiation optimization: All CT scans at this facility use at least one of these dose optimization techniques: automated exposure control; mA and/or kV adjustment per patient size (includes targeted exams where dose is matched to clinical indication); or iterative reconstruction. REPORTING DATA: Count of CT and Cardiac NM exams in prior 12 months: This patient has received [address] and 0 known cardiac nuclear medicine studies in the 12 months prior to the current study. COMPARISON: CR XR chest 1V [id number] 08/18/2019 8:19 PM RADIATION DOSE METRICS: Total DLP (mGy-cm): 565.74 FINDINGS: Lungs: Left lower lobe chronic mild pleuroparenchymal fibrosis. Pleural spaces: Unremarkable. No pneumothorax. No pleural effusion. Heart: Cardiomegaly. Coronary arteries: Coronary artery atherosclerotic calcifications. Lymph nodes: Unremarkable. No enlarged lymph nodes. Vasculature: Ascending thoracic aorta dilated to 4.6 cm. Spleen: Spleen enlarged to 14.6 cm. Stomach and bowel: Constipation. Bones/joints: Several chronic left posterior rib fractures. Soft tissues: Unremarkable. Other findings: Cholecystectomy with surgical clips about the liver likely reflecting history of liver transplant. CT/CT chest wo con [id number] IMPRESSION: 1. Negative for acute traumatic injury to the chest. 2. Ascending thoracic aorta dilated to 4.6 cm. 3. Cardiomegaly. 4. Coronary artery atherosclerotic calcifications. 5. Spleen enlarged to 14.6 cm. 6. Cholecystectomy with surgical clips about the liver likely reflecting history of liver transplant. 7. Several chronic left posterior rib fractures. 8. 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 9. Constipation.
--- NOTE | 2023-02-17 14:38 | CTR_ITS ---
PROCEDURE INFORMATION: Exam: CT Head Without Contrast Exam date and time: 02/17/2023 2:56 PM Age: 57 years old Clinical indication: Injury or trauma; Fall; Blunt trauma (contusions or hematomas) and laceration and other: Loc; Without residual foreign body; Other: Occiput region; Additional info: Fall head trauma occiput region TECHNIQUE: Imaging protocol: Computed tomography of the head without contrast. Radiation optimization: All CT scans at this facility use at least one of these dose optimization techniques: automated exposure control; mA and/or kV adjustment per patient size (includes targeted exams where dose is matched to clinical indication); or iterative reconstruction. REPORTING DATA: Count of CT and Cardiac NM exams in prior 12 months: This patient has received [address] and 0 known cardiac nuclear medicine studies in the 12 months prior to the current study. COMPARISON: CT head wo con* [id number] 10/24/2018 9:09 PM RADIATION DOSE METRICS: Total DLP (mGy-cm): 1152.38 FINDINGS: Brain: Mild diffuse white matter disease likely reflecting chronic microvascular ischemic changes. Cerebral ventricles: No ventriculomegaly. Paranasal sinuses: Visualized sinuses are unremarkable. No fluid levels. Mastoid air cells: Visualized mastoid air cells are well aerated. Bones/joints: Unremarkable. No acute fracture. Soft tissues: Unremarkable. CT/CT head wo con* [id number] IMPRESSION: Negative for intracranial hemorrhage or mass effect.
--- NOTE | 2023-02-17 14:38 | W.ED.FALL ---
HPI - Fall General: Chief Complaint: Fall Stated Complaint: fall/hit head, rib pain Time Seen by Provider: 02/17/23 14:32 History of Present Illness: Patient presents to the ER with complaints of falling down a ramp hitting the back of his head and losing consciousness. Patient did this just prior to arrival. Patient said his knee gave out on him and he went down. Patient has controlled bleeding on the back of his head from a lack, and is complaining of left lateral rib pain. MD complaint: fall Onset (ago): minute(s) Fall from: standing Fall witnessed: no Place fall occurred: home Loss of consciousness: Yes Prolonged down time: no and unclear Symptoms prior to fall: none Context: tripped/slipped Location of injury: head Severity: mild Associated symptoms-after fall: Reports no associated symptoms and headache(s); Denies abdominal pain, chest pain or neck pain Review of Systems General: Reports: 10 or more systems reviewed and unremarkable except in HPI and below Const: Denies: fever(s) or chills Eyes: Denies: change in vision ENMT: Denies: throat pain or odynophagia Card: Denies: chest pain, palpitations or irregular heart rhythm Resp: Denies: dyspnea, productive cough or non-productive cough GI: Denies: abdominal pain, nausea, vomiting or diarrhea : Denies: flank pain, difficulty urinating or dysuria Musc: Denies: neck pain or back pain Skin/Breast: Denies: rash or pruritus Neuro: Reports: headache(s); Denies: numbness in extremities or weakness in extremities Psych: Denies: anxiety or depression PFSH ED PFSH: Medical History Hernia History of nonmelanoma skin cancer Immunosuppression 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 Father Diabetes Mother Diabetes Social History Smoking and tobacco status: current every day smoker Alcohol intake: former Current gender identity: Male Physical Exam Const: COMMON NORMALS: no acute distress, average body habitus, patient oriented x3, no limitations, healthy appearing, alert and well nourished HENMT: COMMON NORMALS: hearing grossly normal bilaterally, external ears normal, Normal external nose present and moist oral mucous membranes HEAD & SCALP: abrasion (Posterior occipital region bleeding controlled) and contusion NOSE: Normal external nose present EXTERNAL EAR: Yes external ears normal Eye: COMMON NORMALS: Equal, round and reactive pupils present, EOMs intact bilaterally, conjunctivae normal and no scleral icterus CONJUNCTIVA: Yes conjunctivae normal PUPIL: Yes Equal, round and reactive pupils present Neck/C-Spine: COMMON NORMALS: full ROM, no lymphadenopathy, supple, no meningeal signs, no JVD and Thyroid normal THYROID: Thyroid normal Chest: COMMONS NORMALS: normal inspection of the chest OTHER: Tenderness to palpation over left lateral chest wall. No obvious deformity/ecchymosis/crepitus noted Resp: COMMON NORMALS: normal respiratory effort, No retractions, No use of accessory muscles and clear to auscultation bilaterally AUSCULTATION: clear to auscultation bilaterally Cardio: COMMON NORMALS: no JVD, regular rate, regular rhythm, S1 normal heart sound present and S2 normal heart sound present RATE: regular rate RHYTHM: regular rhythm HEART SOUNDS: S1 normal heart sound present and S2 normal heart sound present GI: COMMON NORMALS: Normal to inspection, nondistended, normoactive bowel sounds present, Soft to palpation, non-tender, No hepatosplenomegaly present and no masses PALPATION: Yes Soft to palpation and Yes No hepatosplenomegaly present : COMMON NORMALS: Yes no CVA tenderness BLADDER/KIDNEY EXAM: Yes no CVA tenderness Back/Pelvis: COMMON NORMALS: no CVA tenderness and thoracic and lumbar spine normal to inspection Extremity: COMMON NORMALS: normal to inspection Neuro: COMMON NORMALS: patient oriented x3 SENSORIUM/ORIENTATION: Yes alert MENINGEAL SIGNS: Yes no meningeal signs Course Vital Signs: Vital signs: Vital Signs Temperature 97.9 F 02/17/23 14:22 Pulse Rate 71 02/17/23 14:41 Blood Pressure 142/89 02/17/23 14:41 Pulse Oximetry 97 02/17/23 14:41 Oxygen Delivery Me thod Room Air 02/17/23 14:41 MDM - Fall Medical Decision Making Patient presents with complaint with fall head trauma and loss of consciousness. Patient does have an abrasion to the posterior occipital region of his head bleeding is controlled there is no gapping. Patient is complaining of left lateral rib pain. Imaging and lab work was obtained which showed a normal CBC/PT/INR, chemistries were benign, head CT was negative for hemorrhage and mass effect, CT of the chest was negative for acute traumatic injury, but did show an a sending thoracic aorta dilated to 4.6 cm, several chronic left posterior rib fractures. Patient was informed of these findings which she knew about the rib fractures but did not know about the aneurysm. Patient is ready to go home. Patient will be discharged and can continue to take his oxycodone at home for his pain. Patient should follow-up with his family practice doctor within the next week. Differential Diagnosis Likely concussion with loss of consciousness; Unlikely syncope, dislocation of shoulder region, fracture of wrist, compression fracture or concussion without loss of consciousness Lab Data 02/17/23 15:07 02/17/23 15:[address] 02/17/23 14:38 IMPRESSION: 1. Negative for acute traumatic injury to the chest. 2. Ascending thoracic aorta dilated to 4.6 cm. 3. Cardiomegaly. 4. Coronary artery atherosclerotic calcifications. 5. Spleen enlarged to 14.6 cm. 6. Cholecystectomy with surgical clips about the liver likely reflecting history of liver transplant. 7. Several chronic left posterior rib fractures. 8. 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 9. Constipation. Head CT 02/17/23 14:38 IMPRESSION: Negative for intracranial hemorrhage or mass effect. Laboratory Results WBC 6.3 10^3/uL (4.0-10.0) 02/17/23 15: RBC 4.67 10^6/uL (4.1-5.3) 02/17/23 15: Hgb 14.5 g/dL (11.7-16.6) 02/17/23 15: Hct 42.3 % (42.0-52.0) 02/17/23 15: MCV 90.6 fl (80-94) 02/17/23 15: MCH 31.0 pg (28.0-34.0) 02/17/23 15: MCHC 34.3 g/dL (30.0-36.0) 02/17/23 15: RDW 13.1 % (12.1-15.1) 02/17/23 15:07 Plt Count 146 10^3/cmm (130-400) 02/17/23 15:07 MPV 9.8 fL (7.4-10.4) 02/17/23 15:07 Neut % (Auto) 67.9 % 02/17/23 15:07 Lymph % (Auto) 22.9 % 02/17/23 15:07 Island % (Auto) 5.4 % 02/17/23 15:07 Eos % (Auto) 3.2 % 02/17/23 15:07 Baso % (Auto) 0.3 % 02/17/23 15:07 Neut # (Auto) 4.24 10^3/uL (1.8-7.7) 02/17/23 15:07 Lymph # (Auto) 1.4 10^3/uL (0.8-4.8) 02/17/23 15:07 Island # (Auto) 0.3 10^3/uL (0.2-0.9) 02/17/23 15:07 Eos # (Auto) 0.2 10^3/uL (0.0-0.8) 02/17/23 15:07 Baso # (Auto) 0.0 10^3/uL (0.0-0.1) 02/17/23 15:07 Nucleated RBC % (auto) 0 % 02/17/23 15:07 Nucleated RBCs # 0.0 /100WBC 02/17/23 15:07 PT 13.00 SECONDS (12.1-14.9) 02/17/23 15:07 INR 0.96 (0.8-1.2) 02/17/23 15:07 Sodium 135 mmol/L (136-145) L 02/17/23 15:07 Potassium 3.9 mmol/L (3.5-5.1) 02/17/23 15:07 Chloride 101 mmol/L (98-107) 02/17/23 15:07 Carbon Dioxide 19 mmol/L (22-29) L 02/17/23 15:07 Anion Gap 18.9 (5-19) 02/17/23 15:07 BUN 15 mg/dL (6-20) 02/17/23 15:07 Creatinine 0.5 mg/dL (0.7-1.2) L 02/17/23 15:07 GFR Calculation 171.4 mL/min (90-130) H 02/17/23 15:07 Glucose 172 mg/dL (65-115) H 02/17/23 15:07 Calculated Osmolality 285 mOsm/kg (285-295) 02/17/23 15:07 Calcium 9.2 mg/dL (8.5-10.5) 02/17/23 15:07 Total Bilirubin 0.6 mg/dL (0.15-1.2) 02/17/23 15:07 AST 28 U/L (0-40) 02/17/23 15:07 ALT 37 U/L (0-41) 02/17/23 15:07 Alkaline Phosphatase 53 U/L (40-130) 02/17/23 15:07 Total Protein 7.6 g/dL (6.6-8.7) 02/17/23 15:07 Albumin 4.1 g/dL (3.5-5.2) 02/17/23 15:07 Globulin 3.5 g/dL (1.3-4.6) 02/17/23 15:07 Discharge Plan Discharge Patient Disposition: Home Clinical Impression: Concussion with loss of consciousness, Fall, Superficial laceration of scalp, Thoracic ascending aortic aneurysm Condition: Stable Prescriptions: No Action magnesium 200 mg tablet 1,200 mg PO DAILY omeprazole 40 mg capsule,delayed release(DR/EC) 40 mg PO DAILY aspirin [Adult Aspirin Regimen] 81 mg tablet,delayed release (DR/EC) 81 mg PO DAILY Qty: 90 3RF black augustine 1,000 mg as directed BID Qty: 60 0RF Envarsus XR 1 mg tablet extended release 24 hr 1 mg PO QAM Rx Instructions: along with the .75mg to equal 1.75mg daily Envarsus XR 0.75 mg tablet extended release 24 hr 0.75 mg PO DAILY Rx Instructions: must be taken on empty stomach (DME) left and right cock up splint See Rx Instructions .Route .MEDSUPPLY Qty: 1 0RF Rx Instructions: As directed (DME) cpap See Rx Instructions .Route .MEDSUPPLY Qty: 1 0RF Rx Instructions: titration setting at 8 nifedipine 90 mg tablet extended release 90 mg PO DAILY Qty: 90 3RF carvedilol [Coreg] 25 mg tablet 25 mg PO BID Rx Instructions: must administer with a meal/food doxazosin 4 mg tablet 6 mg PO DAILY Rx Instructions: TAKE 1 AND 1/2 TABLETS BY MOUTH EVERY DAY oxycodone 10 mg tablet 10 mg PO Q6H PRN (Reason: pain) Qty: 10 0RF duloxetine 30 mg capsule,delayed release(DR/EC) 30 mg PO DAILY Vitamin C 500 mg Tablet 500 mg PO DAILY Multi M Vitamin Tablet 1 tab PO DAILY Discharge Orders: Discharge ED (Routine); Ordered 02/17/23 Ordered By: Alen Duarte Referrals: Remberto Sotomayor MD [Primary Care Provider] - 1 week Patient Instructions: Concussion (ED), Thoracic Aortic Aneurysm (ED) Coding Level of Care Code ED Clinical Documentation Consultant for [facility]
[2023-02-17 14:41] VITALS: BP 142/89; PULSE 71; O2SAT 97
--- NOTE | 2023-02-17 15:03 | PC.NURSE ---
Cleaned dried blood off of patient head with peroxide. Laceration was 1cm long. There was a bit of swelling around his wound. Bleeding is controlled at this time.
[2023-02-17 15:35] LABS: Basophils % 0.3 %; Eosinophils # 0.2 10^3/uL (0.0-0.8); Eosinophils % 3.2 %; Hematocrit 42.3 % (42.0-52.0); Hemoglobin 14.5 g/dL (11.7-16.6); Lymphocytes # 1.4 10^3/uL (0.8-4.8); Lymphocytes % 22.9 %; Mean Corpuscular HGB Conc 34.3 g/dL (30.0-36.0); Mean Corpuscular Volume 90.6 fl (80-94); Mean Platelet Volume 9.8 fL (7.4-10.4); Monocytes # 0.3 10^3/uL (0.2-0.9); Monocytes % 5.4 %; Neutrophils # 4.24 10^3/uL (1.8-7.7); Neutrophils % 67.9 %; Nucleated Red Blood Cells % 0 %; Platelet Count 146 10^3/cmm (130-400); Red Blood Count 4.67 10^6/uL (4.1-5.3); Red Cell Distribution Width 13.1 % (12.1-15.1); White Blood Count 6.3 10^3/uL (4.0-10.0)
[2023-02-17 15:54] LABS: INR 0.96 (0.8-1.2)
[2023-02-17 16:09] LABS: Alanine Aminotransferase 37 U/L (0-41); Albumin Level 4.1 g/dL (3.5-5.2); Alkaline Phosphatase 53 U/L (40-130); Anion Gap 18.9 (5-19); Aspartate Amino Transferase 28 U/L (0-40); Blood Urea Nitrogen 15 mg/dL (6-20); Calcium 9.2 mg/dL (8.5-10.5); Carbon Dioxide 19 mmol/L (22-29); Chloride 101 mmol/L (98-107); Creatinine Clr Calc Pharmacy 184.1392; Globulin 3.5 g/dL (1.3-4.6); Glomerular Filtration Rate 171.4 mL/min (90-130); Glucose 172 mg/dL (65-115); Osmolality Calculated 285 mOsm/kg (285-295); Potassium 3.9 mmol/L (3.5-5.1); Sodium 135 mmol/L (136-145); Total Bilirubin 0.6 mg/dL (0.15-1.2); Total Protein 7.6 g/dL (6.6-8.7)
[2023-02-17] MEDS: ketorolac 60 mg/2 mL INJ IM (17:04)
[2023-02-17 20:48] VITALS: BP 142/89; PULSE 71; O2SAT 97
== END 2023-02-17 18:00 | disposition home or self-care (01) ==
PROVIDERS: Emergency Provider Emergency Medicine; PCP Internal Medicine
DX: S06.0X9A Concussion with loss of consciousness of unspecified duration, initial encounter (principal); S01.01XA Laceration without foreign body of scalp, initial encounter; I71.21 Aneurysm of the ascending aorta, without rupture; Z79.82 Long term (current) use of aspirin; F17.210 Nicotine dependence, cigarettes, uncomplicated; W10.2XXA Fall (on)(from) incline, initial encounter
CPT/HCPCS: 36415; 70450; 71250; 80053; 85025; 85610; 96372; 99284; J1885

== ENCOUNTER 2023-03-05 06:00 | Outpatient (RCR) | payer OTHER, SELFPAY | END 2023-03-16 23:59 | disposition home or self-care (01) | LOC: TPT 06:00 | PROVIDERS: PCP Internal Medicine; Visit Provider Specialist | DX: R53.1 Weakness (principal) | CPT/HCPCS: 97110 ==

== ENCOUNTER → 2023-04-11 09:40 | Outpatient (BNVA) | payer OTHER, SELFPAY | PROVIDERS: PCP Internal Medicine; Visit Provider Internal Medicine Gastroenterology | DX: M60.9 Myositis, unspecified (principal); Z94.4 Liver transplant status; G72.41 Inclusion body myositis [IBM]; Z79.899 Other long term (current) drug therapy | CPT/HCPCS: 80053; 80061; 80197; 82306; 82607; 82746; 83036; 85025 ==

== ENCOUNTER 2023-05-18 07:41 | Outpatient (CLI) | payer OTHER, SELFPAY ==
--- NOTE | 2023-05-18 07:49 | USCV_ITS ---
Shahbaz Cleary Age: 57 Gender: M : 1965 Exam Date: 05/18/2023 08:25 Ordering Phys: Jason Her MD Technologist: CT Exam Location: [facility] – [place]_ Indication: s/p liver transplant BP: 129 / 69 HR: 67 Rhythm: Sinus Technical Quality: Adequate MEASUREMENTS (Male / Female) Normal Values 2D ECHO LV Diastolic Diameter PLAX 4.5 cm 4.2 - 5.9 / 3.9 - 5.3 cm LV Systolic Diameter PLAX 3.3 cm IVS Diastolic Thickness 1.2 cm 0.6 - 1.0 / 0.6 - 0.9 cm IVS Systolic Thickness 1.8 cm LVPW Diastolic Thickness 1.4 cm 0.6 - 1.0 / 0.6 - 0.9 cm LVPW Systolic Thickness 1.9 cm LVOT Diameter 2.1 cm LV Ejection Fraction 2D Teich 54.2 % LV Ejection Fraction MOD 2C 62.0 % LV Ejection Fraction 2C AL 61.1 % LA Diameter 4.8 cm Aorta at Sinotubular Diameter 2.9 cm IVC Diameter 1.6 cm M-MODE Aortic Annulus Diameter 3.2 cm LA Ao Ratio MM 1.6 MV E Point Septal Separation 0.7 cm DOPPLER AV Peak Velocity 177.0 cm/s LVOT Peak Velocity 141.0 cm/s AV Area Cont Eq vti 2.8 cm squared AV Area Cont Eq pk 2.8 cm squared MV Peak Velocity 100.0 cm/s MV Area PHT 4.0 cm squared Mitral E to A Ratio 1.2 MV E' Velocity 57.5 cm/s Mitral E to MV E' Ratio 14.0 Mitral E to LV E' Lateral Ratio 14.6 Mitral E to LV E' Septal Ratio 13.7 TR Peak Velocity 131.0 cm/s TR Peak Gradient 6.9 mmHg TV Peak E Velocity 90.0 cm/s Right Atrial Pressure 3.0 mmHg Pulmonary Artery Systolic Pressu 9.9 mmHg PV Peak Velocity 120.0 cm/s FINDINGS Left Ventricle Normal left ventricular size and systolic function, EF 62 %. No regional wall motion abnormalities. Mild left ventricular hypertrophy. Grade II/IV diastolic dysfunction, moderately elevated filling pressures. Right Ventricle The right ventricle is normal in size and function. Right Atrium The right atrium is normal in size. Left Atrium Mildly increased left atrial size. Mitral Valve Structurally normal mitral valve. Aortic Valve Thickened aortic valve. Tricuspid Valve Structurally normal tricuspid valve. Pulmonic Valve Pulmonic valve not well visualized. Pericardium Normal pericardium without effusion. Aorta Normal ascending aorta dimension. IVC Normal inferior vena cava. CONCLUSIONS Normal left ventricular size and systolic function, EF 62 %. No regional wall motion abnormalities. Mild left ventricular hypertrophy. Grade II/IV diastolic dysfunction, moderately elevated filling pressures. Thickened aortic valve. Normal cardiac chamber sizes There is no pericardial effusion. There are no intracardiac masses. Compared to the study from 12/31/2017, there may not be a significant change Dr Brenton Sandhu MD FAC (Electronically Signed) Final Date: 19 May 2023 11:24 S
== END 2023-05-18 07:42 | disposition home or self-care (01) ==
LOC: RAD 07:41
PROVIDERS: PCP Internal Medicine; Visit Provider Internal Medicine Gastroenterology
DX: Z94.4 Liver transplant status (principal); M62.81 Muscle weakness (generalized); I51.7 Cardiomegaly; I35.8 Other nonrheumatic aortic valve disorders
CPT/HCPCS: 93306

== ENCOUNTER 2023-06-08 09:32 | Outpatient (CLI) | payer OTHER, SELFPAY ==
--- NOTE | 2023-06-08 09:45 | MR_ITS ---
WS: [id number] MRI OF THE RIGHT FOREARM WITHOUT AND WITH GADOLINIUM ENHANCEMENT INDICATION: Inclusion body myositis. Loss of insurance associate strength. TECHNIQUE: Coronal T1, coronal STIR sagittal STIR sagittal T1 axial T2 axial PD and post gadolinium f at saturation images were obtained. Imaging performed with arm by side FINDINGS: Suboptimal imaging degraded by patient motion and wrap artifact due to positioning. Normal bone marrow signal in the radius and ulna. No acute fractures. No abnormal bony enhancement. F atty muscle atrophy with mild edema involving the muscle bellies of the flexor compartment more promi nent in the proximal and mid forearm. This includes the Flexor digitorum profundus, pronator teres, p almaris longus, flexor digitorum superficialis, supinator, and flexor carpi radialis. Also including the pronator quadratus distally. Intramuscular enhancement difficult to assess due to motion artifact . Extensor compartment muscle bellies are better preserved. MR/MR forearm RT wo/w con [id number] IMPRESSION: Suboptimal imaging due to patient positioning with motion and wrap artifact 1. Mild edema with fatty muscle atrophy in the flexor forearm compartment more prominent proximally. This is detailed above. 2. Findings can be seen with myositis including Inclusion body myositis as que ried' 3. Normal bone marrow signal in the radius and ulna. 4. No drainable fluid collection or abscess. Flexor digitorum profundus
[2023-06-08] MEDS: gadobenate dimeglumine 20 mL vial IV (11:29)
== END 2023-06-08 09:33 | disposition home or self-care (01) ==
PROVIDERS: PCP Internal Medicine; Visit Provider Psychiatry & Neurology Clinical Neurophysiology
DX: G72.41 Inclusion body myositis [IBM] (principal); M62.531 Muscle wasting and atrophy, not elsewhere classified, right forearm
CPT/HCPCS: 73220; A9577

== ENCOUNTER 2023-06-29 06:00 | Outpatient (RCR) | payer OTHER, SELFPAY | END 2023-07-05 23:59 | disposition home or self-care (01) | LOC: TPT 06:00 | PROVIDERS: Visit Provider Internal Medicine | DX: M62.59 Muscle wasting and atrophy, not elsewhere classified, multiple sites (principal) | CPT/HCPCS: 97110; 97116; 97163 ==

== ENCOUNTER 2023-07-06 06:00 | Outpatient (RCR) | payer OTHER, SELFPAY | END 2023-08-04 23:59 | disposition home or self-care (01) | LOC: TPT 06:00 | PROVIDERS: PCP Nurse Practitioner Family; Visit Provider Internal Medicine | DX: M62.59 Muscle wasting and atrophy, not elsewhere classified, multiple sites (principal) | CPT/HCPCS: 97110; 97112 ==

== ENCOUNTER → 2023-07-10 09:22 | Outpatient (BNVA) | payer OTHER, SELFPAY | PROVIDERS: PCP Nurse Practitioner Family; Visit Provider Nurse Practitioner Family | DX: Z94.4 Liver transplant status (principal) | CPT/HCPCS: 80048; 80076; 80197; 83735; 85025 ==

== ENCOUNTER → 2023-07-30 14:21 | Outpatient (BNVA) | payer OTHER, SELFPAY | PROVIDERS: PCP Psychiatry & Neurology Neurology; Visit Provider Dermatology | DX: L82.1 Other seborrheic keratosis (principal); D18.01 Hemangioma of skin and subcutaneous tissue; L57.8 Other skin changes due to chronic exposure to nonionizing radiation; L73.8 Other specified follicular disorders; Z08 Encounter for follow-up examination after completed treatment for malignant neoplasm; Z85.828 Personal history of other malignant neoplasm of skin; L53.8 Other specified erythematous conditions; L57.0 Actinic keratosis | CPT/HCPCS: 11200; 17000; 99213 ==

== ENCOUNTER 2023-08-05 06:00 | Outpatient (RCR) | payer OTHER, SELFPAY | END 2023-09-04 23:59 | disposition home or self-care (01) | LOC: TPT 06:00 | PROVIDERS: PCP Psychiatry & Neurology Neurology; Visit Provider Internal Medicine | DX: M62.59 Muscle wasting and atrophy, not elsewhere classified, multiple sites (principal) | CPT/HCPCS: 97110; 97112; 97164 ==

== ENCOUNTER → 2023-10-12 09:37 | Outpatient (BNVA) | payer OTHER, SELFPAY | PROVIDERS: PCP Psychiatry & Neurology Neurology; Visit Provider Nurse Practitioner Family | DX: Z94.4 Liver transplant status (principal); Z79.899 Other long term (current) drug therapy | CPT/HCPCS: 80048; 80076; 80197; 83735; 85007; 85027 ==

== ENCOUNTER → 2024-01-07 11:34 | Outpatient (BNVA) | payer OTHER, SELFPAY | PROVIDERS: PCP Psychiatry & Neurology Neurology; Visit Provider Nurse Practitioner Family | DX: M62.81 Muscle weakness (generalized) (principal); Z94.4 Liver transplant status; Z12.5 Encounter for screening for malignant neoplasm of prostate | CPT/HCPCS: 80053; 80197; 85007; 85027; 85610; G0103 ==

== ENCOUNTER → 2024-01-14 08:41 | Outpatient (BNVA) | payer OTHER, SELFPAY | PROVIDERS: PCP Psychiatry & Neurology Neurology; Visit Provider Nurse Practitioner Family | DX: Z94.4 Liver transplant status (principal); Z79.899 Other long term (current) drug therapy | CPT/HCPCS: 80053; 80197; 85007; 85027 ==

== ENCOUNTER → 2024-04-14 09:08 | Outpatient (BNVA) | payer OTHER, SELFPAY | PROVIDERS: PCP Psychiatry & Neurology Neurology; Visit Provider Family Medicine | DX: Z94.4 Liver transplant status (principal); Z79.899 Other long term (current) drug therapy | CPT/HCPCS: 80053; 80197; 85025; 85610; G0103 ==

== ENCOUNTER → 2024-07-14 09:50 | Outpatient (BNVA) | payer OTHER, SELFPAY | PROVIDERS: PCP Psychiatry & Neurology Neurology; Visit Provider Nurse Practitioner Family | DX: Z94.4 Liver transplant status (principal) | CPT/HCPCS: 80053; 80197; 85025; 85610 ==

== ENCOUNTER → 2024-11-06 10:56 | Outpatient (BNVA) | payer OTHER, SELFPAY | PROVIDERS: PCP Psychiatry & Neurology Neurology; Visit Provider Nurse Practitioner Family | DX: Z94.4 Liver transplant status (principal) | CPT/HCPCS: 80053; 80197; 85025; 85610; 87496 ==

== ENCOUNTER → 2025-02-04 08:06 | Outpatient (BNVA) | payer OTHER, SELFPAY | PROVIDERS: PCP Psychiatry & Neurology Neurology; Visit Provider Nurse Practitioner Family | DX: Z94.4 Liver transplant status (principal) | CPT/HCPCS: 80053; 80197; 85025; 85610 ==